=== PATIENT | female | born 1965 | race American Indian/Alaskan Native ===

== ENCOUNTER 2022-07-12 11:15 | Emergency (ER) | payer BC ==
[~2022-07-12] VITALS: Ht 165.1 cm; Wt 86.2 kg
[~2022-07-12 11:15] MED LIST: ATIVAN1 MG PO; B-12500 MCG PO; EXCEDRIN TENSI1 EACH PO; MULTI VITAMIN1 EACH PO; NORCO 5-325 TA1 EACH PO; TAMOXIFEN CITRA20 MG
--- NOTE | 2022-07-12 22:08 | EKG ---
[facility] [address] [place] [address] Signed Normal sinus rhythm Normal ECG No previous ECGs available Confirmed by Dennis Ruiz MD () on 07/12/2022 10:08:17 PM Electronically Signed By: DENNIS RUIZ MD 07/12/222207 PATIENT NAME: ADRIANA TADEO Electrocardiogram DATE OF : 65 PHYSICIAN: DENNIS RUIZ MD REPORT #: [id number] REPORT IS CONFIDENTIAL AND NOT TO BE RELEASED WITHOUT AUTHORIZATION
== END 2022-07-12 13:42 | disposition home or self-care (01) ==
LOC: ED 11:15
DX: R07.89 Other chest pain (principal); Z85.3 Personal history of malignant neoplasm of breast; Z79.899 Other long term (current) drug therapy
CPT/HCPCS: 36415; 71045; 80053; 83735; 84484; 85025; 85379; 93005; 93010; 99285-25; A9270

== ENCOUNTER 2024-03-18 16:07 | Emergency (ER) | payer BC, OTHER ==
[~2024-03-18] VITALS: Ht 165.1 cm; Wt 91.2 kg
[~2024-03-18 16:07] MED LIST changes: +HYDROCODON-ACE1 EA10 PO
[2024-03-18] MEDS ORDERED: LIDOCAINE-PRILOC5 GM TP (16:17)
[2024-03-18] MEDS ORDERED: GABAPENTIN300 MG PO (16:17)
[2024-03-18] MEDS ORDERED: DEXAMETHASONE2 MG PO (16:17)
[2024-03-18] MEDS ORDERED: POTASSIUM CHLO10 ME1 PO (16:17)
[2024-03-18] MEDS ORDERED: PROCHLORPERAZIN10 MG PO (16:17)
[2024-03-18] MEDS ORDERED: NEOMYC-POLYM-D3.5 GM OPTH (16:17)
[2024-03-18] MEDS ORDERED: DEXAMETHASONE SOD PHOS 10 MG/ML VIAL PO ONE (17:00)
[2024-03-18] MEDS ORDERED: OXYCODONE/APAP 5/325 TAB PO ONE (17:00)
[2024-03-18 17:37] LABS: INFLUENZA B NAA NEGATIVE (NEGATIVE); RESPIRATORY SYNCYTIAL VIR NAA NEGATIVE (NEGATIVE)
[2024-03-18 18:06] VITALS: BP 108/70
== END 2024-03-18 18:06 | disposition home or self-care (01) ==
LOC: ED 16:07
PROVIDERS: Emergency Medicine
DX: U07.1 COVID-19 (principal); C50.919 Malignant neoplasm of unspecified site of unspecified female breast; Z79.899 Other long term (current) drug therapy
CPT/HCPCS: 87502; 87651; 99283; J1100; U0002